=== PATIENT | female | born 1935 | race Caucasian/White ===

== ENCOUNTER 2019-06-12 11:45 | Emergency (ER) | payer MEDICARE, BC ==
[~2019-06-12] VITALS: Ht 152.4 cm; Wt 56.7 kg
[~2019-06-12 11:45] MED LIST: IMODIUM2 MG/10 ML GT; KEFLEX500 MG ORAL; LISINOPRIL10 MG ORAL; METOPROLOL SUCC50 MG ORAL; METOPROLOL TART50 M1 ORAL; NORVASC10 MG ORAL; PRINIVIL20 MG ORAL; SYNTHROID150 MCG PO; TAMSULOSIN HCL0.4 MG PO
--- NOTE | 2019-06-12 12:09 | NUR ---
ED Nurse Note:pt. came from home with bleeding skin tear on left forearm, also has lots of brusing and skin discolorations on bilateral arms and legs, pt. is A/Ox4 ambulatory
[2019-06-12 12:55] VITALS: BP 153/68
--- NOTE | 2019-06-12 13:37 | Emergency Room Report ---
History of Present Illness General Chief Complaint: Wound Recheck/Suture Removal Source: Patient Present Illness HPI This patient is accompanied by her caregiver. The patient notes that she somehow suffered a wound to her left forearm. She does not recall how this occurred. She denies trauma. She has no other complaints. Allergies: Coded Allergies: SULFA (SULFONAMIDE ANTIBIOTICS) (Verified Allergy, Intermediate, 01/30/15) Patient History Past Medical History: see triage record, HTN, other - Breast ca, Hypothyroid Social History: Denies: smoking, alcohol use, drug use Reviewed Nursing Documentation: PMH: Agreed; PSxH: Agreed Nursing Documentation-PMH Hx Cardiac Problems: Yes Hx Hypertension: Yes Hx Cancer: Yes - urethral CA Hx Gastrointestinal Problems: No Hx Neurological Problems: No Review of Systems All Other Systems: negative except mentioned in HPI Physical Exam Vital Signs Date Time Temp Pulse Resp B/P (MAP) Pulse Ox O2 Delivery O2 Flow Rate FiO2 06/12/19 11:51 98.2 69 19 153/68 (96) 94 Room Air Sp02 EP Interpretation: reviewed, normal General Appearance: no apparent distress, alert, GCS 15, non-toxic Head: normocephalic, atraumatic Eyes: bilateral eye normal inspection, bilateral eye PERRL ENT: hearing grossly normal, normal pharynx, no angioedema, normal voice Neck: full range of motion Respiratory: no respiratory distress, no retraction, no accessory muscle use, speaking full sentences Rectal: deferred Musculoskeletal: normal range of motion, non-tender Neurologic: alert, oriented x3, responsive, motor strength/tone normal, sensory intact, speech normal Psychiatric: judgement/insight normal, mood/affect normal Skin: other - [id number] superficial skin avulsion/abrasion. Medical Decision Making Diagnostic Impression: Primary Impression: Skin avulsion Additional Impression: Abrasion ER Course Patient has very thin frail skin and likely abraded her left forearm unknowingly on a hard object. The patient has a superficial skin avulsion. The wound was cleaned and antibiotic ointment was placed and it was stressed. I will place the patient on a 3-day course of antibiotics as a precaution. The patient's caregiver states that she gets infections of her skin very easy. That is why I am giving her the antibiotics. Patient is given close return precautions, wound care precautions and follow-up instructions. Last Vital Signs Date Time Temp Pulse Resp B/P (MAP) Pulse Ox O2 Delivery O2 Flow Rate FiO2 06/12/19 12:55 98.2 70 19 153/68 94 Room Air Status: improved Disposition: HOME, SELF-CARE Condition: Improved Referrals: Babs Bello MD (PCP) Ariana Sousa DO Jun 12, 2019 13:37
[2019-06-12] MEDS ORDERED: CEPHALEXIN500 MG ORAL (13:39)
[2019-06-12] MEDS ORDERED: Neosporin Oint Ud Pkt TOPIC ONE (13:45)
[2019-06-12 13:49] VITALS: BP 153/68
--- NOTE | 2019-06-12 13:50 | NUR ---
ER DISCHARGE NOTE: Patient is cleared to be discharged per ERMD DR STAUFFER, pt is aox4, on room air, with stable vital signs. pt was given dc and prescription instructions, pt was able to verbalize understanding, pt id band removed without complications. pt is able to ambulate with steady gait. pt took all belongings.
== END 2019-06-12 13:49 | disposition home or self-care (01) ==
LOC: EMR 12:23
DX: S50.812A Abrasion of left forearm, initial encounter (principal); I10 Essential (primary) hypertension; Z85.54 Personal history of malignant neoplasm of ureter; Z85.3 Personal history of malignant neoplasm of breast; E03.9 Hypothyroidism, unspecified; Z88.2 Allergy status to sulfonamides; X58.XXXA Exposure to other specified factors, initial encounter; Y92.9 Unspecified place or not applicable
CPT/HCPCS: 99282